=== PATIENT | male | born 1980 | race Caucasian/White ===

== ENCOUNTER 2022-04-14 15:34 | Emergency (ER) | payer BC ==
[~2022-04-14] VITALS: Ht 172.7 cm; Wt 80.0 kg
[2022-04-14 15:38] VITALS: BP 135/93
[2022-04-14 15:45] VITALS: BP 137/94
[2022-04-14 16:01] VITALS: BP 106/70
[2022-04-14 16:15] VITALS: BP 123/83
[2022-04-14] MEDS ORDERED: KEFLEX500 MG PO ×2 (16:20→16:27)
[2022-04-14 16:30] VITALS: BP 124/81
== END 2022-04-14 16:35 | disposition home or self-care (01) | DRG 605 ==
LOC: ED 15:34
PROC: 0HQEXZZ Repair Left Lower Arm Skin, External Approach (ICD-10-PCS; principal; 2022-04-14)
DX: S51.812A Laceration without foreign body of left forearm, initial encounter (principal); W29.8XXA Contact with other powered hand tools and household machinery, initial encounter; Y93.89 Activity, other specified; Y92.009 Unspecified place in unspecified non-institutional (private) residence as the place of occurrence of the external cause